=== PATIENT | male | born 1965 | race African-American/Black ===

== ENCOUNTER 2017-10-14 09:44 | Inpatient (IN) | payer BC, OTHER ==
--- NOTE | 2017-10-14 10:20 | ER Document Report ---
ED Medical Screen (RME) - General Chief Complaint: Fever Stated Complaint: RIGHT ARM PAIN,FEVER Time Seen by Provider: 10/14/17 10:18 Mode of Arrival: Ambulatory Information source: Patient TRAVEL OUTSIDE OF THE [place] IN LAST 30 DAYS: No - HPI Patient complains to provider of: R shoulder pain, fever Onset: Other - pt. states he has had intermittent pain in R shoulder since fx a year ago. Also had fever to 102 this am - Related Data Allergies/Adverse Reactions: Penicillins Allergy (Verified 10/14/17 09:45) Physical Exam - Vital signs Vitals: Temp Pulse Resp BP Pulse Ox 98.4 F 84 18 145/82 H 97 10/14/17 09:59 10/14/17 09:59 10/14/17 09:59 10/14/17 09:59 10/14/17 09:59 Course - Vital Signs Vital signs: Temp Pulse Resp BP Pulse Ox 98.4 F 84 18 145/82 H 97 10/14/17 09:59 10/14/17 09:59 10/14/17 09:59 10/14/17 09:59 10/14/17 09:59
--- NOTE | 2017-10-14 10:51 | RADIOLOGY REPORT (SQ) ---
EXAM DESCRIPTION: SHOULDER RIGHT 2 OR MORE VIEWS COMPLETED DATE/TIME: 10/14/2017 10:34 am REASON FOR STUDY: pain COMPARISON: None. NUMBER OF VIEWS: Three views. TECHNIQUE: Internal rotation, external rotation, and Y view images acquired of the right shoulder. LIMITATIONS: None. FINDINGS: MINERALIZATION: Normal. BONES: No acute fracture or dislocation. No worrisome bone lesions. JOINTS: No dislocation. AC joint arthropathy. VISUALIZED LUNGS AND RIBS: No pneumothorax. No rib fracture. SOFT TISSUES: No radiopaque foreign body. OTHER: No other significant finding. IMPRESSION: AC joint arthropathy. TECHNICAL DOCUMENTATION: JOB ID: [id number] [employer]- All Rights Reserved Reading location - IP/workstation name: [email or web address]
[2017-10-14 11:00] LABS: ABSOLUTE BASOPHILS # (AUTO) 0.1 10^3/uL (0.0-0.2); ABSOLUTE MONOCYTES (AUTO) 0.7 10^3/uL (0.1-1.4); ABSOLUTE NEUT (AUTO) 5.1 10^3/uL (1.7-8.2); BASOPHILS % (AUTO) 1.3 % (0-2); EOSINOPHILS % (AUTO) 0.2 % (0-6); HEMOGLOBIN 15.7 g/dL (13.5-17.0); LYMPHOCYTES % (AUTO) 25.4 % (13-45); MEAN CORPUSCULAR HEMOGLOBIN 30.7 pg (27.0-33.4); MEAN CORPUSCULAR HGB CONC 34.2 g/dL (32.0-36.0); MEAN CORPUSCULAR VOLUME 90 fl (80-97); MONOCYTES % (AUTO) 8.7 % (3-13); PLATELET COUNT 426 10^3/uL (150-450); RED BLOOD COUNT 5.13 10^6/uL (4.35-5.55); RED CELL DISTRIBUTION WIDTH 13.5 % (11.5-14.0); SEGMENTED NEUTROPHILS % (AUTO) 64.4 % (42-78); TOTAL CELLS COUNTED % (AUTO) 100 %
[2017-10-14 11:05] LABS: APPEARANCE,URINE SLIGHTLY-CLOUDY; BILIRUBIN,URINE NEGATIVE (NEGATIVE); COLOR,URINE YELLOW; GLUCOSE, URINE NEGATIVE (NEGATIVE); KETONES,URINE TRACE mg/dL (NEGATIVE); LEUKOCYTE ESTERASE,URINE SMALL (NEGATIVE); NITRITE,URINE NEGATIVE (NEGATIVE); PROTEIN,URINE 30 mg/dL (NEGATIVE); URINE SPECIFIC GRAVITY 1.027
[2017-10-14] MEDS ORDERED: NORMAL SALINE 1000 ML 1,000 ML IV ONE ×2 (11:19→11:32)
[2017-10-14 11:22] LABS: ALANINE AMINOTRANSFERASE 51 U/L (21-72); ALBUMIN 4.6 g/dL (3.5-5.0); ALKALINE PHOSPHATASE 69 U/L (38-126); ANION GAP 14 (5-19); ASPARTATE AMINO TRANSFERASE 135 U/L (17-59); BILIRUBIN,DIRECT 0.3 mg/dL (0.0-0.4); BILIRUBIN,TOTAL 0.6 mg/dL (0.2-1.3); BLOOD UREA NITROGEN 21 mg/dL (7-20); CALCIUM 9.8 mg/dL (8.4-10.2); CARBON DIOXIDE 25 mmol/L (22-30); CHLORIDE 103 mmol/L (98-107); GLUCOSE 114 mg/dL (75-110); POTASSIUM 4.2 mmol/L (3.6-5.0); SODIUM 141.7 mmol/L (137-145)
--- NOTE | 2017-10-14 11:23 | ER Document Report ---
ED General - General Chief Complaint: Fever Stated Complaint: RIGHT ARM PAIN,FEVER Time Seen by Provider: 10/14/17 10:18 Mode of Arrival: Ambulatory Information source: Patient Notes: Patient states that he works 2 jobs in [place] and was working Monday and started to feel lightheaded. Patient states after work he developed body cramps all over including his abdomen. Patient states that he has had generalized muscle pain to all his extremities. Patient reports right shoulder joint pain but states he has had problems with the shoulder in the past and denies any new injury. Patient denies any nausea vomiting or diarrhea. Patient does report some urinary frequency. Patient states that he had a temperature of 102 today and took Tylenol this morning. Patient denies any cough or cold symptoms. Patient does report about a 30 pound weight loss over the past month, but states that he has been attempting to eat healthier. TRAVEL OUTSIDE OF THE [place] IN LAST 30 DAYS: No - HPI Onset: Other - 3 days Onset/Duration: Persistent Quality of pain: Achy, Cramping Pain Level: 5 Associated symptoms: Fever, Weakness. denies: Chest pain, Nonproductive cough, Productive cough, Diarrhea, Nausea, Vomiting Exacerbated by: Denies Relieved by: Denies Similar symptoms previously: No Recently seen / treated by doctor: No - Related Data Allergies/Adverse Reactions: Penicillins Allergy (Verified 10/14/17 10:21) Past Medical History - General Information source: Patient - Social History Smoking Status: Former Smoker Chew tobacco use (# tins/day): No Frequency of alcohol use: None Drug Abuse: Marijuana Occupation: Works 2 jobs in a kitchen Lives with: Family Family History: Other - Gout Patient has suicidal ideation: No Patient has homicidal ideation: No Renal/ Medical History: Denies: Hx Peritoneal Dialysis Musculoskeletal Medical History: Reports Other - Sciatica Surgical Hx: Negative Review of Systems - Review of Systems Constitutional: Fever, Weakness, Weight loss. denies: Recent illness EENT: No symptoms reported Cardiovascular: Dizziness - 3 days ago. denies: Chest pain Respiratory: No symptoms reported. denies: Cough, Short of breath Gastrointestinal: Abdominal pain. denies: Diarrhea, Nausea, Constipation Genitourinary: Frequency Male Genitourinary: No symptoms reported Musculoskeletal: Joint pain - Right shoulder joint pain, Muscle pain - Generalized muscle cramps Skin: No symptoms reported Hematologic/Lymphatic: No symptoms reported Neurological/Psychological: No symptoms reported Physical Exam - Vital signs Vitals: Temp Pulse Resp BP Pulse Ox 98.4 F 84 18 145/82 H 97 10/14/17 09:59 10/14/17 09:59 10/14/17 09:59 10/14/17 09:59 10/14/17 09:59 - General General appearance: Appears well, Alert In distress: None - HEENT Head: Normocephalic, Atraumatic Eyes: Normal Conjunctiva: Normal Nasal: Normal Mouth/Lips: Normal Mucous membranes: Normal Neck: Normal, Supple. No: Lymphadenopathy - Respiratory Respiratory status: No respiratory distress Chest status: Nontender Breath sounds: Normal. No: Rales, Rhonchi, Stridor, Wheezing Chest palpation: Normal - Cardiovascular Rhythm: Regular Heart sounds: S1 appreciated, S2 appreciated Murmur: No - Abdominal Inspection: Normal Distension: No distension Bowel sounds: Normal Tenderness: Tender - Generalized abdominal tenderness, Guarding - tenderness when palpating epigastric and right upper quadrant - Back Back: Normal, Nontender - Extremities General upper extremity: Tender - Mild tenderness to right shoulder joint., Normal ROM General lower extremity: Normal inspection, Normal ROM Shoulder: Tender - Right shoulder joint tenderness that increases with range of motion, no dislocation, no deformity.. No: Deformity, Dislocation, Ecchymosis - Neurological Neuro grossly intact: Yes Cognition: Normal Orientation: AAOx4 [place] Coma Scale Eye Opening: Spontaneous [place] Coma Scale Verbal: Oriented Leah Coma Scale Motor: Obeys Commands Leah Coma Scale Total: 15 Motor strength normal: LUE, RUE, LLE, RLE Additional motor exam normals: Equal pick up man - Psychological Associated symptoms: Normal affect, Normal mood - Skin Skin Temperature: Warm Skin Moisture: Dry Skin Color: Normal Course - Re-evaluation Re-evalutation: 10/14/17 13:00 Patient resting, patient states that abdominal cramping seems to be improved after IV fluids. Patient advised that we are still awaiting laboratory test results. 10/14/17 14:[address] Woodward regarding patient presentation and diagnostic evaluation. Advises consultation with hospitalist for observation admission. Consulted with Dr. Kaufman regarding patient presentation, reviewed diagnostic test results. Agrees to accept patient as an observation admission to the medical floor. Patient advised of the plan of care and is agreeable with admission at this time. - Vital Signs Vital signs: Temp Pulse Resp BP Pulse Ox 98.4 F 84 19 136/78 H 98 10/14/17 09:59 10/14/17 09:59 10/14/17 16:01 10/14/17 16:01 10/14/17 16:09 - Laboratory Result Diagrams: 10/14/17 10:44 10/14/17 10:44 Laboratory results interpreted by me: 10/14/17 10/14/17 10/14/17 10:44 10:44 10:44 BUN 21 H Glucose 114 H AST 135 H Creatine Kinase 7264 H Urine Protein 30 H Urine Ketones TRACE H Urine Urobilinogen 2.0 H Ur Leukocyte Esterase SMALL H Urine Ascorbic Acid 40 H 10/14/17 14:23 Labs- Entire Visit 10/14/17 10/14/17 10/14/17 10:44 10:44 10:44 WBC 8.0 RBC 5.13 Hgb 15.7 Hct 46.0 MCV 90 MCH 30.7 MCHC 34.2 RDW 13.5 Plt Count 426 Seg Neutrophils % 64.4 Lymphocytes % 25.4 Monocytes % 8.7 Eosinophils % 0.2 Basophils % 1.3 Absolute Neutrophils 5.1 Absolute Lymphocytes 2.0 Absolute Monocytes 0.7 Absolute Eosinophils 0.0 Absolute Basophils 0.1 Sodium 141.7 Potassium 4.2 Chloride 103 Carbon Dioxide 25 Anion Gap 14 BUN 21 H Creatinine 0.97 Est GFR ( Amer) > 60 Est GFR (Non-Af Amer) > 60 Glucose 114 H Calcium 9.8 Total Bilirubin 0.6 Direct Bilirubin 0.3 Neonat Total Bilirubin Not Reportable Neonat Direct Bilirubin Not Reportable Neonat Indirect Bili Not Reportable AST 135 H ALT 51 Alkaline Phosphatase 69 Creatine Kinase Total Protein 8.0 Albumin 4.6 TSH Urine Color YELLOW Urine Appearance SLIGHTLY-CLOUDY Urine pH 5.0 Ur Specific [place] 1.027 Urine Protein 30 H Urine Glucose (UA) NEGATIVE Urine Ketones TRACE H Urine Blood NEGATIVE Urine Nitrite NEGATIVE Urine Bilirubin NEGATIVE Urine Urobilinogen 2.0 H Ur Leukocyte Esterase SMALL H Urine WBC (Auto) 14 Urine RBC (Auto) 2 Squamous Epi Cells Auto 1 Urine Mucus (Auto) MANY Urine Ascorbic Acid 40 H Chlamydia DNA (PCR) N.gonorrhoeae DNA (PCR) 10/14/17 10/14/17 10/14/17 10:44 10:44 11:26 WBC RBC Hgb Hct MCV MCH MCHC RDW Plt Count Seg Neutrophils % Lymphocytes % Monocytes % Eosinophils % Basophils % Absolute Neutrophils Absolute Lymphocytes Absolute Monocytes Absolute Eosinophils Absolute Basophils Sodium Potassium Chloride Carbon Dioxide Anion Gap BUN Creatinine Est GFR ( Amer) Est GFR (Non-Af Amer) Glucose Calcium Total Bilirubin Direct Bilirubin Neonat Total Bilirubin Neonat Direct Bilirubin Neonat Indirect Bili AST ALT Alkaline Phosphatase Creatine Kinase 7264 H Total Protein Albumin TSH 0.67 Urine Color Urine Appearance Urine pH Ur Specific [place] Urine Protein Urine Glucose (UA) Urine Ketones Urine Blood Urine Nitrite Urine Bilirubin Urine Urobilinogen Ur Leukocyte Esterase Urine WBC (Auto) Urine RBC (Auto) Squamous Epi Cells Auto Urine Mucus (Auto) Urine Ascorbic Acid Chlamydia DNA (PCR) NOT DETECTED N.gonorrhoeae DNA (PCR) NOT DETECTED Discharge - Discharge Clinical Impression: Dehydration Rhabdomyolysis Qualifiers: Rhabdomyolysis type: non-traumatic Qualified Code(s): M62.82 - Rhabdomyolysis Condition: Stable Disposition: ADMITTED OBSERVATION Admitting Provider: Hospitalist Unit Admitted: Medical Floor
--- NOTE | 2017-10-14 12:28 | RADIOLOGY REPORT (SQ) ---
EXAM DESCRIPTION: U/S ABDOMEN LIMITED W/O DOP COMPLETED DATE/TIME: 10/14/2017 12:20 pm REASON FOR STUDY: abd pain COMPARISON: None. TECHNIQUE: Dynamic and static grayscale images acquired of the abdomen and recorded on PACS. Additio nal selected color Doppler and spectral images recorded. LIMITATIONS: None. FINDINGS: PANCREAS: No masses. Visualized pancreatic duct normal caliber. LIVER: No masses. Echotexture normal. LIVER VASCULATURE: Normal directional flow of the main portal vein and hepatic veins. GALLBLADDER: No stones. Normal wall thickness. No pericholecystic fluid. ULTRASOUND-DETECTED CORLEY'S SIGN: Negative. INTRAHEPATIC DUCTS AND COMMON DUCT: CBD and intrahepatic ducts normal caliber. No filling defects. INFERIOR VENA CAVA: Normal flow. AORTA: No aneurysm. RIGHT KIDNEY: Normal size. Normal echogenicity. No solid or suspicious masses. No hydronephrosis. No calcifications. PERITONEAL AND RIGHT PLEURAL SPACE: No ascites or effusions. OTHER: No other significant findings. IMPRESSION: NORMAL RIGHT UPPER QUADRANT ULTRASOUND. TECHNICAL DOCUMENTATION: JOB ID: [id number] [employer]- All Rights Reserved Reading location - IP/workstation name: [email or web address]
[2017-10-14 13:28] LABS: CHLAM PCR NOT DETECTED (NOT DETECT); GON PCR NOT DETECTED (NOT DETECT)
[2017-10-14 13:59] LABS: CREATINE KINASE 7264 U/L (55-170)
[2017-10-14] MEDS: NORMAL SALINE 1000 ML 1,000 ML IV PRN ×2 (15:22→21:56)
[2017-10-14] MEDS ORDERED: TEMAZEPAM 15 MG CAPSULE PO PRN (15:59)
[2017-10-14] MEDS ORDERED: OXYCODONE-ACETAMINOPHEN 5-325 MG TABLET PO PRN (15:59)
[2017-10-14] MEDS ORDERED: ACETAMINOPHEN 325 MG TABLET PO PRN (15:59)
[2017-10-14] MEDS ORDERED: ONDANSETRON HCL INJ/PF 4 MG/2 ML SDV IV PRN (15:59)
[2017-10-14] MEDS ORDERED: DEXTROSE 5%-1/2 NORMAL SALINE 1,000 ML IV PRN (15:59)
[2017-10-14] MEDS ORDERED: IPRATROPIUM/ALBUTEROL 0.5-2.5 MG/3 ML AMPUL NEB PRN (15:59)
--- NOTE | 2017-10-14 16:24 | PDOC H&P ---
History of Present Illness Admission Date/PCP: 10/14/17 14:31 History of Present Illness: DEN JIMENEZ is a 52 year old male Presents emergency room with complaints of generalized aches and pains and body aches was started early on this week. There dysuria frequency or change in his urine quality or quantity although he did note that his urine seemed to be a little bit darker. Denies any dizziness. He has had no cold symptoms. He was found to have rhabdomyolysis with a CPK of 7000 in the emergency room and he does have some ketonuria which may suggest that patient is dehydrated. He denies exposure to the heat. Past Medical History Medical History: None Musculoskeltal Medical History: Reports: Other - Sciatica Past Surgical History Past Surgical History: Reports: None Social History Information Source: Patient Lives with: Family Smoking Status: Former Smoker - Advance Directive Resuscitation Status: Full Code Family History Family History: Other - Gout Parental Family History Reviewed: Yes Children Family History Reviewed: Yes Sibling(s) Family History Reviewed.: Yes Medication/Allergy Home Medications: No Home Medications 10/14/17 Allergies/Adverse Reactions: Penicillins Allergy (Verified 10/14/17 10:21) Review of Systems All systems: reviewed and no additional remarkable complaints except as stated Physical Exam Vital Signs: Temp Pulse Resp BP Pulse Ox 98.4 F 84 19 136/78 H 98 10/14/17 09:59 10/14/17 09:59 10/14/17 16:01 10/14/17 16:01 10/14/17 16:09 Intake & Output 10/13/17 10/14/17 10/15/17 06:59 06:59 06:59 Intake Total 1000 Balance 1000 General appearance: PRESENT: no acute distress, well-developed, well-nourished Head exam: PRESENT: atraumatic, normocephalic Eye exam: PRESENT: conjunctiva pink, EOMI, PERRLA. ABSENT: scleral icterus Ear exam: PRESENT: normal external ear exam Mouth exam: PRESENT: moist, tongue midline Neck exam: ABSENT: carotid bruit, JVD, lymphadenopathy, thyromegaly Respiratory exam: PRESENT: clear to auscultation miracle. ABSENT: rales, rhonchi, wheezes Cardiovascular exam: PRESENT: RRR. ABSENT: diastolic murmur, rubs, systolic murmur Pulses: PRESENT: normal dorsalis pedis pul Vascular exam: PRESENT: normal capillary refill GI/Abdominal exam: PRESENT: normal bowel sounds, soft. ABSENT: distended, guarding, mass, organolmegaly, rebound, tenderness Rectal exam: PRESENT: deferred Extremities exam: PRESENT: full ROM. ABSENT: calf tenderness, clubbing, pedal edema Neurological exam: PRESENT: alert, awake, oriented to person, oriented to place , oriented to time, oriented to situation, CN II-XII grossly intact. ABSENT: motor sensory deficit Psychiatric exam: PRESENT: appropriate affect, normal mood. ABSENT: homicidal ideation, suicidal ideation Skin exam: PRESENT: dry, intact, warm. ABSENT: cyanosis, rash Results Laboratory Results: 10/14/17 10:44 10/14/17 10:44 MCV 90 fl (80-97) 10/14/17 10:44 MCH 30.7 pg (27.0-33.4) 10/14/17 10:44 MCHC 34.2 g/dL (32.0-36.0) 10/14/17 10:44 RDW 13.5 % (11.5-14.0) 10/14/17 10:44 Seg Neutrophils % 64.4 % (42-78) 10/14/17 10:44 Lymphocytes % 25.4 % (13-45) 10/14/17 10:44 Monocytes % 8.7 % (3-13) 10/14/17 10:44 Eosinophils % 0.2 % (0-6) 10/14/17 10:44 Basophils % 1.3 % (0-2) 10/14/17 10:44 Absolute Neutrophils 5.1 10^3/uL (1.7-8.2) 10/14/17 10:44 Absolute Lymphocytes 2.0 10^3/uL (0.5-4.7) 10/14/17 10:44 Absolute Monocytes 0.7 10^3/uL (0.1-1.4) 10/14/17 10:44 Absolute Eosinophils 0.0 10^3/uL (0.0-0.6) 10/14/17 10:44 Absolute Basophils 0.1 10^3/uL (0.0-0.2) 10/14/17 10:44 Chloride 103 mmol/L (98-107) 10/14/17 10:44 Carbon Dioxide 25 mmol/L (22-30) 10/14/17 10:44 Anion Gap 14 (5-19) 10/14/17 10:44 Est GFR ( Amer) > 60 (>60) 10/14/17 10:44 Est GFR (Non-Af Amer) > 60 (>60) 10/14/17 10:44 Glucose 114 mg/dL (75-110) H 10/14/17 10:44 Calcium 9.8 mg/dL (8.4-10.2) 10/14/17 10:44 Total Bilirubin 0.6 mg/dL (0.2-1.3) 10/14/17 10:44 AST 135 U/L (17-59) H 10/14/17 10:44 ALT 51 U/L (21-72) 10/14/17 10:44 Alkaline Phosphatase 69 U/L (38-126) 10/14/17 10:44 Total Protein 8.0 g/dL (6.3-8.2) 10/14/17 10:44 Albumin 4.6 g/dL (3.5-5.0) 10/14/17 10:44 TSH 0.67 uIU/mL (0.47-4.68) 10/14/17 10:44 Urine Color YELLOW 10/14/17 10:44 Urine Appearance SLIGHTLY-CLOUDY 10/14/17 10:44 Urine pH 5.0 (5.0-9.0) 10/14/17 10:44 Ur Specific [place] 1.027 10/14/17 10:44 Urine Protein 30 mg/dL (NEGATIVE) H 10/14/17 10:44 Urine Glucose (UA) NEGATIVE mg/dL (NEGATIVE) 10/14/17 10:44 Urine Ketones TRACE mg/dL (NEGATIVE) H 10/14/17 10:44 Urine Blood NEGATIVE (NEGATIVE) 10/14/17 10:44 Urine Nitrite NEGATIVE (NEGATIVE) 10/14/17 10:44 Ur Leukocyte Esterase SMALL (NEGATIVE) H 10/14/17 10:44 Urine WBC (Auto) 14 /HPF 10/14/17 10:44 Urine RBC (Auto) 2 /HPF 10/14/17 10:44 10/14/17 10:44 Creatine Kinase 7264 H Impressions: Shoulder X-Ray 10/14/17 10:18 IMPRESSION: AC joint arthropathy. Abdomen Ultrasound 10/14/17 11:20 IMPRESSION: NORMAL RIGHT UPPER QUADRANT ULTRASOUND. Assessment & Plan - Diagnosis (1) Rhabdomyolysis Qualifiers: Rhabdomyolysis type: non-traumatic Qualified Code(s): M62.82 - Rhabdomyolysis Is this a current diagnosis for this admission?: Yes Plan: Etiology unclear. 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 He is indoors though. He denies drug use We will be aggressively hydrated and will follow up on CPK a.m. (2) Dehydration Is this a current diagnosis for this admission?: Yes Plan: IV fluids (3) Urinary tract infection Qualifiers: Urinary tract infection type: site unspecified Hematuria presence: without hematuria Qualified Code(s): N39.0 - Urinary tract infection, site not specified Is this a current diagnosis for this admission?: Yes Plan: He does appear to have a slight UTI leukocyte esterase positive and pyuria. I will place him on doxycycline and follow up on urine cultures - Time Time Spent: 30 to 50 Minutes Anticipated discharge: Home Within: within 24 hours - Inpatient Certification Based on my medical assessment, after consideration of the patient's comorbidities, presenting symptoms, or acuity I expect that the services needed warrant INPATIENT care.: Yes Medical Necessity: Need For IV Fluids
[2017-10-14 20:32] LABS: URINE AMPHETAMINES SCREEN NEGATIVE; URINE BARBITURATES SCREEN NEGATIVE; URINE BENZODIAZEPINES SCREEN NEGATIVE; URINE COCAINE SCREEN NEGATIVE; URINE METHADONE SCREEN NEGATIVE; URINE PHENCYCLIDINE SCREEN NEGATIVE
[2017-10-14 20:43] LABS: URINE MARIJUANA (THC) SCREEN UNCONFIRMED POSITIVE
[2017-10-15] MEDS: NORMAL SALINE 1000 ML 1,000 ML IV PRN (03:16)
[2017-10-15 05:21] LABS: ANION GAP 8 (5-19); BLOOD UREA NITROGEN 20 mg/dL (7-20); CALCIUM 8.5 mg/dL (8.4-10.2); CARBON DIOXIDE 24 mmol/L (22-30); CHLORIDE 112 mmol/L (98-107); GLUCOSE 96 mg/dL (75-110); POTASSIUM 4.3 mmol/L (3.6-5.0); SODIUM 143.5 mmol/L (137-145)
[2017-10-15 06:24] LABS: CREATINE KINASE 6123 U/L (55-170)
[2017-10-15] MEDS: DEXTROSE 5%-1/2 NORMAL SALINE 1,000 ML IV PRN ×3 (08:11→18:48)
[2017-10-15] MEDS: ENOXAPARIN SODIUM INJ 40 MG/0.4 ML DISP.SYRIN SUBCUT SCH (11:26)
--- NOTE | 2017-10-15 15:40 | PDOC PROGRESS REPORT ---
Subjective Progress Note for:: 10/15/17 Subjective:: Admitted with acute rhabdomyolysis. CPK has trended down somewhat. He reports less muscle soreness. Reason For Visit: DEHYDRATION,RHABDOMYOLYSIS Physical Exam Vital Signs: Temp Pulse Resp BP Pulse Ox 98.3 F 70 16 126/69 H 99 10/15/17 11:16 10/15/17 15:12 10/15/17 15:12 10/15/17 11:16 10/15/17 11:16 Intake & Output 10/14/17 10/15/17 10/16/17 06:59 06:59 06:59 Intake Total 2562 1000 Balance 2562 1000 Weight 102.3 kg General appearance: PRESENT: no acute distress, well-developed, well-nourished Head exam: PRESENT: atraumatic, normocephalic Eye exam: PRESENT: conjunctiva pink, EOMI, PERRLA. ABSENT: scleral icterus Ear exam: PRESENT: normal external ear exam Mouth exam: PRESENT: moist, tongue midline Neck exam: ABSENT: carotid bruit, JVD, lymphadenopathy, thyromegaly Respiratory exam: PRESENT: clear to auscultation miracle. ABSENT: rales, rhonchi, wheezes Cardiovascular exam: PRESENT: RRR. ABSENT: diastolic murmur, rubs, systolic murmur Pulses: PRESENT: normal dorsalis pedis pul Vascular exam: PRESENT: normal capillary refill GI/Abdominal exam: PRESENT: normal bowel sounds, soft. ABSENT: distended, guarding, mass, organolmegaly, rebound, tenderness Rectal exam: PRESENT: deferred Extremities exam: PRESENT: full ROM. ABSENT: calf tenderness, clubbing, pedal edema Neurological exam: PRESENT: alert, awake, oriented to person, oriented to place , oriented to time, oriented to situation, CN II-XII grossly intact. ABSENT: motor sensory deficit Psychiatric exam: PRESENT: appropriate affect, normal mood. ABSENT: homicidal ideation, suicidal ideation Skin exam: PRESENT: dry, intact, warm. ABSENT: cyanosis, rash Results Laboratory Results: 10/15/17 04:28 10/15/17 04:28 Sodium 143.5 Potassium 4.3 Chloride 112 H Carbon Dioxide 24 Anion Gap 8 BUN 20 Creatinine 0.79 Est GFR ( Amer) > 60 Est GFR (Non-Af Amer) > 60 Glucose 96 Calcium 8.5 10/15/17 04:28 Creatine Kinase 6123 H Impressions: Shoulder X-Ray 10/14/17 10:18 IMPRESSION: AC joint arthropathy. Abdomen Ultrasound 10/14/17 11:20 IMPRESSION: NORMAL RIGHT UPPER QUADRANT ULTRASOUND. Assessment & Plan - Diagnosis (1) Rhabdomyolysis Qualifiers: Rhabdomyolysis type: non-traumatic Qualified Code(s): M62.82 - Rhabdomyolysis Is this a current diagnosis for this admission?: Yes Plan: Continue aggressive IV fluids (2) Dehydration Is this a current diagnosis for this admission?: Yes (3) Urinary tract infection Qualifiers: Urinary tract infection type: site unspecified Hematuria presence: without hematuria Qualified Code(s): N39.0 - Urinary tract infection, site not specified Is this a current diagnosis for this admission?: Yes Plan: Urine culture is negative. Patient is on empiric antibiotics - Time Time Spent with patient: 15-24 minutes Medications reviewed and adjusted accordingly: Yes Anticipated discharge: Home Within: within 48 hours - Inpatient Certification Based on my medical assessment, after consideration of the patient's comorbidities, presenting symptoms, or acuity I expect that the services needed warrant INPATIENT care.: Yes Medical Necessity: Need For IV Fluids, Need for IV Antibiotics
[2017-10-16 06:52] LABS: ANION GAP 8 (5-19); BLOOD UREA NITROGEN 12 mg/dL (7-20); CALCIUM 8.7 mg/dL (8.4-10.2); CARBON DIOXIDE 24 mmol/L (22-30); CHLORIDE 113 mmol/L (98-107); GLUCOSE 103 mg/dL (75-110); POTASSIUM 4.4 mmol/L (3.6-5.0); SODIUM 144.6 mmol/L (137-145)
[2017-10-16 07:21] LABS: CREATINE KINASE 3814 U/L (55-170)
[2017-10-16] MEDS: DEXTROSE 5%-1/2 NORMAL SALINE 1,000 ML IV PRN (08:43)
[2017-10-16] MEDS: ENOXAPARIN SODIUM INJ 40 MG/0.4 ML DISP.SYRIN SUBCUT SCH (12:04)
--- NOTE | 2017-10-16 13:07 | PDOC DISCHARGE SUMMARY ---
General - Admit/Disc Date/PCP Admission Date/Primary Care Provider: 10/14/17 15:59 Discharge Date: 10/16/17 - Discharge Diagnosis (1) Rhabdomyolysis Is this a current diagnosis for this admission?: Yes (2) Dehydration Is this a current diagnosis for this admission?: Yes - Additional Information Resuscitation Status: Full Code Discharge Diet: Other (Comments) - Low calorie, weight loss- 1500 oseas/day Discharge Activity: Activity As Tolerated Home Medications: No Home Medications 10/14/17 History of Present Illness History of Present Illness: DEN JIMENEZ is a 52 year old male Presents emergency room with complaints of generalized aches and pains and body aches was started early on this week. There dysuria frequency or change in his urine quality or quantity although he did note that his urine seemed to be a little bit darker. Denies any dizziness. He has had no cold symptoms. He was found to have rhabdomyolysis with a CPK of 7000 in the emergency room and he does have some ketonuria which may suggest that patient is dehydrated. He denies exposure to the heat. Hospital Course Hospital Course: This patient was admitted with rhabdomyolysis. His initial CPK was over 7000. Precise etiology of his rhabdomyolysis is not clear would likely secondary to heat exhaustion. Patient was also found to be dehydrated. Luckily he had no other significant acute illness or comorbidities and responded very well to aggressive fluid hydration. His CPK is however still elevated at 3814. With hemodynamic stability and with no further interventions been planned patient has been discharged home for outpatient follow-up. Physical Exam Vital Signs: Temp Pulse Resp BP Pulse Ox 98.8 F 57 L 19 133/75 H 100 10/16/17 07:04 10/16/17 07:04 10/16/17 00:00 10/16/17 07:04 10/16/17 07:04 Intake & Output 10/15/17 10/16/17 10/17/17 06:59 06:59 06:59 Intake Total 2562 4828 Output Total 2090 Balance 2562 2748 Weight 102.3 kg 107.8 kg General appearance: PRESENT: no acute distress, well-developed, well-nourished Head exam: PRESENT: atraumatic, normocephalic Eye exam: PRESENT: conjunctiva pink, EOMI, PERRLA. ABSENT: scleral icterus Ear exam: PRESENT: normal external ear exam Mouth exam: PRESENT: moist, tongue midline Neck exam: ABSENT: carotid bruit, JVD, lymphadenopathy, thyromegaly Respiratory exam: PRESENT: clear to auscultation miracle. ABSENT: rales, rhonchi, wheezes Cardiovascular exam: PRESENT: RRR. ABSENT: diastolic murmur, rubs, systolic murmur Pulses: PRESENT: normal dorsalis pedis pul Vascular exam: PRESENT: normal capillary refill GI/Abdominal exam: PRESENT: normal bowel sounds, soft. ABSENT: distended, guarding, mass, organolmegaly, rebound, tenderness Rectal exam: PRESENT: deferred Extremities exam: PRESENT: full ROM. ABSENT: calf tenderness, clubbing, pedal edema Neurological exam: PRESENT: alert, awake, oriented to person, oriented to place , oriented to time, oriented to situation, CN II-XII grossly intact. ABSENT: motor sensory deficit Psychiatric exam: PRESENT: appropriate affect, normal mood. ABSENT: homicidal ideation, suicidal ideation Skin exam: PRESENT: dry, intact, warm. ABSENT: cyanosis, rash Results Laboratory Results: 10/16/17 06:00 10/16/17 06:00 Sodium 144.6 Potassium 4.4 Chloride 113 H Carbon Dioxide 24 Anion Gap 8 BUN 12 Creatinine 0.90 Est GFR ( Amer) > 60 Est GFR (Non-Af Amer) > 60 Glucose 103 Calcium 8.7 10/15/17 10/16/17 04:28 06:00 Creatine Kinase 6123 H 3814 H Impressions: Shoulder X-Ray 10/14/17 10:18 IMPRESSION: AC joint arthropathy. Abdomen Ultrasound 10/14/17 11:20 IMPRESSION: NORMAL RIGHT UPPER QUADRANT ULTRASOUND. Qualifiers - * PATIENT BEING DISCHARGED WITH ANY OF THE FOLLOWING DIAGNOSIS: No Plan Time Spent: Less than 30 Minutes
[2017-10-16 13:26] VITALS: BP 141/60
== END 2017-10-16 15:10 | disposition home or self-care (01) | DRG 558 ==
LOC: ER 09:44 → EH 14:31 → OBSVTOIN 15:59 → 4N 16:43
PROVIDERS: ADMIT Internal Medicine; ATTEND Internal Medicine
DX: M62.82 Rhabdomyolysis (principal); N39.0 Urinary tract infection, site not specified; E86.0 Dehydration; Z87.891 Personal history of nicotine dependence; Z83.49 Family history of other endocrine, nutritional and metabolic diseases; Z88.0 Allergy status to penicillin
CPT/HCPCS: 36415; 76705; 80048; 80053; 80307; 81001; 82550; 84443; 85025; 87086; 87088; 87491; 87591; 96360; 96361; 99285; J1650; J7030